=== PATIENT | male | born 1970 | race Caucasian/White ===

== ENCOUNTER 2016-10-15 23:20 | Emergency (ER) | payer BC ==
[~2016-10-15] VITALS: Ht 182.9 cm; Wt 138.2 kg
[~2016-10-15 23:20] MED LIST: FLUT0.15 INTNAS; LSN20 PO; MULT-506 PO; OMEG10007 PO; PRAV80TA2 PO; PRLSR20 PO
[2016-10-15 23:22] VITALS: TEMP 36.9; Ht 182.9 cm; Wt 138.2 kg
[2016-10-16 00:36] VITALS: BP 126/76; PULSE 76; O2SAT 96
--- NOTE | 2016-10-16 00:58 | EMERGENCY ROOM VISIT NOTE ---
ED Visit Note First contact with patient: 23:26 CHIEF COMPLAINT: Wrist injury HISTORY OF PRESENT ILLNESS: This 46-year-old male patient presents to the emergency department complaining of pain in the left wrist after falling while getting out of his truck about 30 minutes ago. The patient is able to move their wrist. The patient states the pain is dull and 7/10. No laceration, no weakness. No numbness or tingling. The patient denies any other injury. The patient is able to move their fingers and elbow without difficulty. The patient has not had a previous fracture to this wrist. The patient has taken nothing for the pain. REVIEW OF SYSTEMS: A 6 system review of systems was performed with positives and pertinent negatives in the HPI. ALLERGIES: See EMR MEDICATIONS: No chronic medications PMH: Otherwise healthy SOCIAL HISTORY: Employed and lives locally PHYSICAL EXAM: Vital Signs: Reviewed Nurse's notes, vital signs stable. GENERAL : White male, in no acute distress, but appears to be in pain, well-developed, well-neurished. NEURO: Alert and oriented to person place and time. Normal sensation to light and sharp touch. MUSCULOSKELETAL: There is no deformity of the left wrist. There is tenderness and edema over the distal radius. There is no significant snuff box tenderness. Range of motion is not limited. There is no tenderness of the elbow, hand or fingers. Manager Unit strength 1/5. Radial pulse 2+ . SKIN: Normal and intact. The hand is warm and well perfused with capillary refill less than 2 seconds. EMERGENCY DEPARTMENT COURSE: Physical exam and history were performed. Nursing notes and EMR were reviewed. The patient appears to have fallen and suffered injury to his left wrist. X-rays were obtained and reviewed by myself and my attending physician. We do have concern the patient may have a very subtle distal radius fracture. Radiology read is pending at the time of this dictation. The patient was placed in a thumb spica Ortho-Glass splint with neurovascular status remaining intact. He will be given an arm sling. The patient was offered pain medication, but declined. He would like to follow with [facility], as family has had good experiences with them. The patient will be referred to their service, and he was asked to contact them tomorrow to arrange appropriate follow-up. The patient was pleased with plan of care and rated his discomfort a 2/10 at the time of departure. Problem List Medical Problems: (1) GERD (gastroesophageal reflux disease) Status: Chronic (2) Hypertension Status: Chronic Current/Historical Medications Scheduled Fish Oil ([place]-3), 2 CAP PO DAILY Fluticasone Propionate (Nasal) (Flonase Allergy Relief), 2 SPRAYS INTNAS DAILY Lisinopril (Lisinopril), 20 MG PO QAM Multivitamin (Multivitamin), 1 TAB PO DAILY Omeprazole (Prilosec), 20 MG PO DAILY Pravastatin Sodium (Pravastatin Sodium), 1 TAB PO DAILY Allergies Coded Allergies: Penicillins (Unverified Allergy, Mild, HIVES, 10/16/16) Latex (Unverified Allergy, Unknown, RASH, 10/16/16) Uncoded Allergies: Petroleum based products (Allergy, Unknown, Hives, 02/07/16) GILL Gan Vasomauricio. Vital Signs Date Time Temp Pulse Resp B/P Pulse Ox O2 Delivery O2 Flow Rate FiO2 10/16/16 00:36 76 16 126/76 96 10/15/16 23:22 36.9 74 20 149/88 98 Room Air Departure Information Impression Primary Impression: Injury of left wrist Dispostion Home / Self-Care Condition GOOD Referrals Adrian Vang M.D. Forms HOME CARE DOCUMENTATION FORM, IMPORTANT VISIT INFORMATION Patient Instructions [facility], ED Compartment Syndrome At Risk For Additional Instructions You were seen and evaluated today on an emergency basis only. This is not a substitute for, or an effort to provide, complete comprehensive medical care. It is not possible to recognize and treat all injuries or illnesses in a single emergency department visit. For this reason it is recommended that you followup with [facility] , Dr. Vang's office, by telephone tomorrow to arrange a follow-up visit. Let them know you were seen in the emergency department to help facilitate care. For baseline pain relief you may alternate ibuprofen and acetaminophen every 4 hours for pain control. Take 600 mg ibuprofen (Advil) and then 4 hours later take 1000 mg acetaminophen (Tylenol). Do not take more than 3000 mg acetaminophen in a single day. Do not get the splint wet. Wear your arm sling for comfort. You are welcome to return to the emergency department anytime with new, worsening, or concerning symptoms.
--- NOTE | 2016-10-16 07:19 | DIAGNOSTIC IMAGING REPORT ---
LEFT WRIST 4 VIEWS CLINICAL HISTORY: Fall with left wrist injury. FINDINGS: 4 views of the left wrist are obtained. No prior studies are available for comparison at the time of dictation. The skeletal structures are well mineralized. No fracture is seen. The joint spaces of the wrist are well-maintained. Mild soft tissue swelling is noted. IMPRESSION: Soft tissue swelling with no radiographic evidence of acute fracture. Consider short-term radiographic follow-up if there is clinical concern for occult fracture. Electronically signed by: Flakito Donohue M.D. 10/16/2016 7:17 AM Dictated Date/Time: 10/16/2016 7:16 AM
== END 2016-10-16 00:37 | disposition home or self-care (01) ==
LOC: C.EDB 23:22 → C.EDC 10-16 00:37
DX: S69.92XA Unspecified injury of left wrist, hand and finger(s), initial encounter (principal); W19.XXXA Unspecified fall, initial encounter; I10 Essential (primary) hypertension; K21.9 Gastro-esophageal reflux disease without esophagitis; Z79.899 Other long term (current) drug therapy; Z88.0 Allergy status to penicillin; Z91.040 Latex allergy status

== ENCOUNTER → 2016-10-24 | Outpatient (CLI) | payer BC ==
--- NOTE | 2016-10-24 10:58 | DIAGNOSTIC IMAGING REPORT ---
LEFT WRIST 3 VIEWS CLINICAL HISTORY: Fall with left wrist injury. Follow-up examination. FINDINGS: 3 views of the left wrist are compared to study dated 10/15/2016. The skeletal structures are well mineralized. No fracture is seen. Minimal arthritic changes present at the first carpometacarpal joint. The joint spaces of the wrist are otherwise well-maintained. The overlying soft tissues are within normal limits. IMPRESSION: There is no radiographic evidence of acute or healing left wrist fracture. Electronically signed by: Flakito Donohue M.D. 10/24/2016 10:57 AM Dictated Date/Time: 10/24/2016 10:46 AM
== END | disposition home or self-care (01) ==
LOC: C.RDSM 14:56
PROVIDERS: ATTEND Physical Medicine & Rehabilitation Sports Medicine
DX: M25.532 Pain in left wrist (principal)

== ENCOUNTER → 2017-08-19 | Outpatient (CLI) | payer OTHER ==
[~2017-08-19] MED LIST changes: +LISI-726 PO; -LSN20 PO
--- NOTE | 2017-08-19 11:04 | DIAGNOSTIC IMAGING REPORT ---
CHEST 2 VIEWS ROUTINE CLINICAL HISTORY: COUGH COMPARISON STUDY: 12/06/2015 FINDINGS: The cardiac and mediastinal contours are normal. There is no evidence of focal pulmonary consolidation. There is no evidence of failure. No pleural effusions are visualized.[ IMPRESSION: No active disease in the chest. Electronically signed by: Bull Porter M.D. 08/19/2017 11:03 AM Dictated Date/Time: 08/19/2017 11:02 AM
== END | disposition home or self-care (01) ==
LOC: C.RAD1850 10:52
PROVIDERS: ATTEND Family Medicine
DX: R05 Cough (principal)